=== PATIENT | male | born 1950 | race Caucasian/White ===

== ENCOUNTER 2019-08-11 09:00 | Inpatient (IN) | payer OTHER ==
[~2019-08-11] VITALS: Ht 182.9 cm; Wt 82.3 kg
[2019-08-11] MEDS ORDERED: LEVO150 PO (09:14)
[2019-08-11] MEDS ORDERED: NORT25 PO (09:14)
[2019-08-11] MEDS ORDERED: FLUO30CR36 TP (09:14)
[2019-08-11] MEDS ORDERED: CALC25 PO (09:14)
[2019-08-11] MEDS ORDERED: ZOLP5 PO (09:14)
[2019-08-11] MEDS ORDERED: [UNRECOGNIZED DRUG - CODE] PO (09:14)
[2019-08-11] MEDS ORDERED: NALOXONE HCL 1 MG/ML 2 ML SYG IVP ONE (09:45)
[2019-08-11] MEDS ORDERED: FLUMAZENIL 0.1 MG/ML 5 ML VIAL IVP ONE ×2 (10:00→11:30)
[2019-08-11 10:09] LABS: ABG A-A DIFF O2 27.4 mmHg (10-20.0); ABG BASE EXCESS -1.2 mmol/L (-2.0-3.0); ABG CARBOXYHEMOGLOBIN 0.9 % (0.0-1.5); ABG HCO3 23.3 mmol/L (22.0-26.0); ABG METHEMOGLOBIN 0.1 % (0.0-1.5); ABG OXYGEN CONTENT 18.8 mL/dL (15.0-23.0); ABG OXYGEN SATURATION 95.5 % (95.0-98.0); ABG OXYHEMOGLOBIN 94.5 % (94.0-100.0); ABG PCO2 41 mmHg (35-45); ABG PH 7.386 (7.35-7.450); ABG TOTAL HEMOGLOBIN 14.1 G/dL (12.0-18.0); PO2, ARTERIAL BG 74.6 mmHg (75.0-83.0); SITE, BLOOD GAS RT RADIAL; SOURCE, BLOOD GAS ARTERIAL; TEMPERATURE, FAHRENHEIT, BG 96.1 FAHREN (96.0-98.6)
[2019-08-11 10:10] LABS: APPEARANCE,URINE CLEAR (CLEAR); BILIRUBIN,URINE NEGATIVE (NEGATIVE); GLUCOSE, URINE (UA) NEGATIVE (NEGATIVE); KETONES,URINE NEGATIVE (NEGATIVE); LEUKOCYTE ESTERASE ,URINE NEGATIVE (NEGATIVE); NITRATE,URINE NEGATIVE (NEGATIVE); OCCULT BLOOD,URINE NEGATIVE (NEGATIVE); PROTEIN,URINE NEGATIVE (NEGATIVE)
[2019-08-11 10:10] LABS: O2 DEVICE,BLOOD GAS ROOM AIR (ROOM AIR)
[2019-08-11 10:17] LABS: AMPHET/METH SCREEN,URINE NEGATIVE (NEGATIVE); BARBITURATE SCREEN, URINE NEGATIVE (NEGATIVE); BENZODIAZEPINES SCREEN,URINE NEGATIVE (NEGATIVE); CANNABINOID SCREEN,URINE NEGATIVE (NEGATIVE); COCAINE SCREEN,URINE NEGATIVE (NEGATIVE); METHADONE SCREEN, URINE NEGATIVE (NEGATIVE)
[2019-08-11 10:18] LABS: PHENCYCLIDINE SCREEN,URINE NEGATIVE (NEGATIVE)
[2019-08-11 10:28] LABS: BACTERIA,URINE None Seen /HPF (None Seen); RBC,URINE None Seen /HPF (0-2); SQUAMOUS EPITHELIAL CELL,UR Few /LPF (None Seen); WBC,URINE None Seen /HPF (0-5)
[2019-08-11 10:37] LABS: OPIATE SCREEN,URINE NEGATIVE (NEGATIVE)
[2019-08-11 10:46] LABS: BASOPHILS % (AUTO) 0.3 % (0.0-2.0); EOSINOPHILS % (AUTO) 0.1 % (1.0-6.0); HEMOGLOBIN 14.2 g/dL (13.5-17.5); LYMPHOCYTES # (AUTO) 0.5 K/uL (1.0-4.8); LYMPHOCYTES % (AUTO) 6.8 % (22.0-44.0); MEAN CORPUSCULAR HGB CONC 33.8 G/dL (31.0-37.0); MEAN CORPUSCULAR VOLUME 89 fL (80-100); MONOCYTES # (AUTO) 0.3 K/uL (0.1-1.0); MONOCYTES % (AUTO) 3.3 % (2.0-9.0); PLATELET COUNT (AUTO) 175 K/uL (150-450); RED BLOOD CELL COUNT(AUTO) 4.74 MIL/uL (4.50-5.90); RED CELL DISTRIBUTION WIDTH 13.8 % (11.5-14.5)
[2019-08-11 10:49] LABS: NEUTROPHILS % (AUTO) 89.5 % (40.0-70.0)
[2019-08-11 10:57] LABS: ANION GAP 9 mmol/L (8-16); CALCIUM, TOTAL 8.9 mg/dL (8.8-10.5); CARBON DIOXIDE 26 mmol/L (22-29); CHLORIDE 103 mmol/L (98-107); CREATININE 1.16 mg/dL (0.60-1.30); GLOMERULAR FILTR. RATE CALC > 60 mL/min (>60); GLUCOSE,RANDOM 130 mg/dL (70-110); POTASSIUM 4.3 mmol/L (3.5-5.1); SALICYLATE 1.5 mg/dL (2.8-20.0); SODIUM SERUM 138 mmol/L (136-145); UREA NITROGEN, BLOOD 21 mg/dL (7-18)
[2019-08-11 11:04] LABS: AMMONIA < 10 umol/L (11-32); TROPONIN I < 0.02 ng/mL (0.00-0.05)
[2019-08-11 11:08] LABS: INR 1.1 (0.9-1.1); PROTHROMBIN TIME 11.6 SEC (9.4-11.6)
[2019-08-11 11:23] LABS: B-TYPE NATRIURETIC PEPTIDE < 5 pg/mL (0-100)
[2019-08-11 11:26] LABS: ALANINE AMINOTRANSFERASE 21 U/L (12-78); ALBUMIN 3.3 g/dL (3.4-5.0); ALKALINE PHOSPHATASE 69 U/L (46-116); ASPARTATE AMINOTRANSFERASE 20 U/L (15-37); BILIRUBIN,TOTAL 0.4 mg/dL (0.1-1.0); CREATINE KINASE, TOTAL ONLY 145 U/L (39-308); FREE T4 (FREE THYROXINE) 0.73 ng/dL (0.76-1.46); LIPASE 89 U/L (73-393); THYROID STIMULATING HORMONE 8.15 uIU/mL (0.36-3.74); TOTAL PROTEIN, SERUM 6.3 g/dL (6.4-8.2)
[2019-08-11 11:55] LABS: LACTIC ACID 1.4 mmol/L (0.4-2.0)
[2019-08-11] MEDS ORDERED: ACETAMINOPHEN 325 MG TABLET PO PRN ×2 (12:00→12:15)
[2019-08-11] MEDS ORDERED: ONDANSETRON HCL 4 MG/2 ML VIAL IVP PRN (12:00)
[2019-08-11] MEDS ORDERED: 0.9% SODIUM CHLORIDE 10 ML SYRINGE IVP PRN (12:00)
[2019-08-11] MEDS: HEPARIN SODIUM,PORCINE 5,000 UNITS/ML VIAL SQ SCH ×2 (16:29→23:50)
[2019-08-11 17:28] VITALS: BP 147/74
[2019-08-11 19:51] VITALS: BP 151/86
[2019-08-11] MEDS: DOCUSATE SODIUM 100 MG CAPSULE PO SCH (20:54)
[2019-08-11 23:54] VITALS: BP 144/71
[2019-08-12 04:18] VITALS: BP 139/73
[2019-08-12 07:53] VITALS: BP 138/70
[2019-08-12] MEDS: DOCUSATE SODIUM 100 MG CAPSULE PO SCH ×2 (08:56→21:51)
[2019-08-12] MEDS: HEPARIN SODIUM,PORCINE 5,000 UNITS/ML VIAL SQ SCH ×3 (08:56→23:41)
[2019-08-12] MEDS: FAMOTIDINE 20 MG TABLET PO SCH (08:56)
[2019-08-12 13:30] VITALS: BP 124/65
[2019-08-12 20:04] VITALS: BP 145/74
[2019-08-12] MEDS: AMITRIPTYLINE HCL 50 MG TABLET PO SCH (21:51)
[2019-08-12] MEDS: MIRTAZAPINE 15 MG TABLET PO SCH (21:51)
[2019-08-13] VITALS (7 sets, daily range): BP systolic 111–137; BP diastolic 60–74
[2019-08-13] MEDS: HEPARIN SODIUM,PORCINE 5,000 UNITS/ML VIAL SQ SCH ×3 (08:32→23:08)
[2019-08-13] MEDS: DOCUSATE SODIUM 100 MG CAPSULE PO SCH ×2 (08:32→20:48)
[2019-08-13] MEDS: FAMOTIDINE 20 MG TABLET PO SCH (08:32)
[2019-08-13] MEDS: AMITRIPTYLINE HCL 50 MG TABLET PO SCH (20:48)
[2019-08-13] MEDS: MIRTAZAPINE 15 MG TABLET PO SCH (20:48)
[2019-08-14 04:30] VITALS: BP 110/67
[2019-08-14 07:37] VITALS: BP 121/68
[2019-08-14] MEDS: HEPARIN SODIUM,PORCINE 5,000 UNITS/ML VIAL SQ SCH (09:54)
[2019-08-14] MEDS: DOCUSATE SODIUM 100 MG CAPSULE PO SCH (09:55)
[2019-08-14] MEDS: FAMOTIDINE 20 MG TABLET PO SCH (09:55)
[2019-08-14] MEDS ORDERED: MAGNESIUM HYDROXIDE SUSPENSION 30 ML UDCUP PO PRN (10:45)
[2019-08-14 11:36] VITALS: BP 161/95
== END 2019-08-14 14:30 | disposition home or self-care (01) | DRG 917 ==
LOC: EMS 09:05 → 5S 16:23
PROVIDERS: ADMIT Internal Medicine; ATTEND Internal Medicine
DX: T42.4X2A Poisoning by benzodiazepines, intentional self-harm, initial encounter (principal); G93.41 Metabolic encephalopathy; F33.2 Major depressive disorder, recurrent severe without psychotic features; E05.90 Thyrotoxicosis, unspecified without thyrotoxic crisis or storm; E03.9 Hypothyroidism, unspecified; J45.909 Unspecified asthma, uncomplicated; E78.00 Pure hypercholesterolemia, unspecified; Z79.899 Other long term (current) drug therapy; Y92.89 Other specified places as the place of occurrence of the external cause; Z91.5 Personal history of self-harm
CPT/HCPCS: 36600; 51702; 82805; 83605; 83735; 84439; 84443; 87040; 93005; 96374; 96375; 96376; 99291; G0480; J1644; J2310; J3490